=== PATIENT | female | born 1980 | race Two or more races ===

== ENCOUNTER → 2024-08-19 | Outpatient (CLI) | payer MEDICAID, SELFPAY ==
--- NOTE | 2024-08-19 10:00 | XR_ITS ---
Examination: Breast ultrasound complete, bilateral Date and time of exam: August 19, 2024 1012 hours INDICATIONS: Bilateral breast sonography June 18, 2023 right breast 9:00 nodule 5 mm retroareolar nodule 6 mm, family history breast cancer Technique: Real-time grayscale ultrasonographic imaging bilateral breasts, including all 4 quadrants as well as nipple retroareolar and axillary regions. Findings: Sonographic images right breast 9:00 circumscribed nodule 5 x 4 x 5 mm Sonographic images left breast No cystic or solid mass IMPRESSION: BI-RADS Category 2: Benign findings
--- NOTE | 2024-08-19 11:15 | XR_ITS ---
Examination: Screening digital mammography, bilateral Computer aided detection 3-D breast Tomosynthesis, bilateral Date and time of exam: August 19, 2024 1005 hours Compared to mammograms dating to July 17, 2020 Indication: Screening Technique: Nonmagnified MLO, CC views of the breasts to been obtained, reconstructed from 3-D Tomosynthesis images. R2 computer aided detection program utilized for evaluation of suspicious masses and/or abnormal calcifications. 3-D Tomosynthesis images obtained. Findings: The breasts are heterogeneously dense, which may obscure small masses The breast architecture is nodular 10 mm round focal asymmetry outer left breast CC view, 9.6 cm from the nipple 8mm oval asymmetry right breast CC view, nipple level, 8.6 cm from the nipple Impression: BI-RADS Category 0: Incomplete: Need additional imaging evaluation Recommend spot tomographic views upper outer quadrant left breast posterior depth to assess 10 mm focal asymmetry outer left breast CC view Recommend follow-up spot tomographic CC view posterior depth upper right breast spot tomographic MLO view to assess 8mm focal asymmetry right breast CC view Recommend bilateral breast sonography follow-up.
== END | disposition home or self-care (01) ==
PROVIDERS: PCP Family Medicine; Referring Provider Specialist; Visit Provider Specialist
DX: Z12.31 Encounter for screening mammogram for malignant neoplasm of breast (principal); R92.8 Other abnormal and inconclusive findings on diagnostic imaging of breast; N64.89 Other specified disorders of breast; Z80.3 Family history of malignant neoplasm of breast
CPT/HCPCS: 76641; 77063; 77067

== ENCOUNTER → 2024-08-20 | Outpatient (CLI) | payer MEDICAID, SELFPAY ==
--- NOTE | 2024-08-20 12:37 | XR_ITS ---
Examination: Diagnostic digital mammography, bilateral Computer aided detection 3-D breast Tomosynthesis, bilateral Date and time of exam: August 20, 2024 1249 hours INDICATIONS: Mammogram August 19, 2024 8 mm focal asymmetry posterior depth right breast CC view 8.6 cm from the nipple, 10 mm oval asymmetry posterior depth outer left breast CC view Technique: Nonmagnified MLO, CC views of the breasts to been obtained, reconstructed from 3-D Tomosynthesis images. R2 computer aided detection program utilized for evaluation of suspicious masses and/or abnormal calcifications. 3-D Tomosynthesis images obtained. Findings: The breasts are heterogeneously dense, which may obscure small masses 6 mm nodule is depicted posterior depth on the spot compression MLO view upper right breast posterior depth 6 mm focal asymmetry is confirmed on the spot compression view outer left breast posterior depth Impression: BI-RADS Category 3: Probably benign findings Six-month bilateral mammography follow-up is needed to document stability of focal asymmetry described above.
== END | disposition home or self-care (01) ==
PROVIDERS: Referring Provider Specialist; Visit Provider Specialist
DX: R92.8 Other abnormal and inconclusive findings on diagnostic imaging of breast (principal); N64.89 Other specified disorders of breast
CPT/HCPCS: 77062; 77066; G0279

== ENCOUNTER 2024-11-01 08:43 | Outpatient (RCR) | payer MEDICAID, SELFPAY ==
--- NOTE | 2024-11-01 10:07 | PT.OIERPT ---
PT OP Initial Eval Patient Information Outpatient Physical Therapy Treatment Date: 11/01/24 Visit Reasons: LOW BACK PAIN Medical Diagnosis: Back Pain; Right Hip Pain Treatment Dx #1: Back Pain Treatment Dx #2: Right Hip Pain Start of Care: 11/01/24 Date of Onset: 3 years ago Smoking Status Smoking Status: Never smoker Initial Assessment Subjective: Pt is a 44 y/o female reports of chronic back and right LE pain (/) worsening 3 years ago. Pt now notice more numbness and tingling down the right foot. Xray negative but no MRI. Pt has limitation with sitting, standing, chores, self care, cooking, work duties, walking, and performing recreational activities. Objective: L/S AROM: all motions are WFL except pain into extension and right sidebending Hip PROM: all motions are WFL except IR Hip MMTs: grossly 3+/5 Special Test (+) SLR (+) crossed SLR Assessment: Pt demonstrate back pain with mobility deficits consistent with possible disc involvement leading to difficulty with ADLs. Pt will attempt physical therapy if pain persist Pt will be refer back to provider. 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
== END 2024-11-08 23:59 | disposition home or self-care (01) ==
LOC: CPTX 08:43
PROVIDERS: PCP Family Medicine; Referring Provider Family Medicine; Visit Provider Family Medicine
DX: M54.50 Low back pain, unspecified (principal); M25.551 Pain in right hip; R20.0 Anesthesia of skin; R20.2 Paresthesia of skin; R26.2 Difficulty in walking, not elsewhere classified; G89.29 Other chronic pain
CPT/HCPCS: 97162

== ENCOUNTER 2024-12-06 10:30 | Outpatient (RCR) | payer MEDICAID, SELFPAY ==
--- NOTE | 2024-11-09 09:18 | PT.ODAYNRPT ---
PT Outpatient Daily Note OP Daily Note Outpatient Physical Therapy Treatment Date: 11/09/24 Visit Reasons: LOW BACK PAIN Subjective: Pt's back is about the same and aches. Objective: Please see flow chart for list of ther ex performed Assessment: minimal change in pain post PT session. Cues to have her hands behind her back to recruit correct musculatures with posterior pelvis tilt Plan: Continue with PT Length of Time (minutes) of Treatment: 30 Minutes Procedure Charges Therapeutic Exercise 30 minutes: Yes
--- NOTE | 2024-11-11 09:34 | PT.ODAYNRPT ---
PT Outpatient Daily Note OP Daily Note Outpatient Physical Therapy Treatment Date: 11/11/24 Visit Reasons: LOW BACK PAIN Subjective: No new complaints or concerns. Objective: Please see flow sheet for ther ex list. Assessment: Pt demonstrates good abdominal recruitment during posterior pelvic tilt exercise. Plan: Continue with POC. Length of Time (minutes) of Treatment: 30 Minutes Procedure Charges Therapeutic Exercise 30 minutes: Yes
--- NOTE | 2024-11-16 12:58 | PT.ODAYNRPT ---
PT Outpatient Daily Note OP Daily Note Outpatient Physical Therapy Treatment Date: 11/16/24 Visit Reasons: LOW BACK PAIN Subjective: Pt's back feels about the same. Pt continues to notice right LE pain down the leg. Objective: Please see flow chart for list of ther ex performed Assessment: less pain reported post Pt session. Added standing extension to exercise program with good tolerance. Minimal changes with right LE pain post standing exercise Plan: Continue with PT Length of Time (minutes) of Treatment: 30 Minutes Procedure Charges Therapeutic Exercise 30 minutes: Yes
--- NOTE | 2024-11-18 09:55 | PT.ODAYNRPT ---
PT Outpatient Daily Note OP Daily Note Outpatient Physical Therapy Treatment Date: 11/18/24 Visit Reasons: LOW BACK PAIN Subjective: Pt's back is okay. Pt still has pain down her right hip intermittently. Objective: Please see flow chart for list of ther ex performed Assessment: progressing patient to more core exercises with TB. Added standing extension with minimal results of decrease radicular hip pain Plan: Continue with PT Length of Time (minutes) of Treatment: 30 Minutes Procedure Charges Therapeutic Exercise 30 minutes: Yes
--- NOTE | 2024-11-23 09:53 | PT.ODAYNRPT ---
PT Outpatient Daily Note OP Daily Note Outpatient Physical Therapy Treatment Date: 11/23/24 Visit Reasons: LOW BACK PAIN Subjective: Pt's back is better. Pt wants to continue physical therapy and complete all 12 sessions authorized. Pt felt after last session it really helped her back Objective: Please see flow chart for list of ther ex performed Assessment: progressing patient to more core strengthening exercises with good tolerance Plan: Continue with PT Length of Time (minutes) of Treatment: 30 Minutes Procedure Charges Therapeutic Exercise 30 minutes: Yes
--- NOTE | 2024-11-30 10:50 | PT.ODAYNRPT ---
PT Outpatient Daily Note OP Daily Note Outpatient Physical Therapy Treatment Date: 11/30/24 Visit Reasons: LOW BACK PAIN Subjective: Pt's back is slightly better today. Pt notice less leg pain lately. Objective: Please see flow chart for list of ther ex performed Assessment: cues to correct wall brianna to to keep back flat on the wall as well as elbow to achieve the right form. Plan: Continue with PT Length of Time (minutes) of Treatment: 30 Minutes Procedure Charges Therapeutic Exercise 30 minutes: Yes
--- NOTE | 2024-12-02 11:55 | PT.ODAYNRPT ---
PT Outpatient Daily Note OP Daily Note Outpatient Physical Therapy Treatment Date: 12/02/24 Visit Reasons: LOW BACK PAIN Subjective: Pt's back feels better. No no concerns to report. Objective: Please see flow chart for list of ther ex performed Assessment: tolerate exercises with minimal pain; cues to decrease trunk sway with tick tock exercise Plan: Continue with PT Length of Time (minutes) of Treatment: 30 Minutes Procedure Charges Therapeutic Exercise 30 minutes: Yes
--- NOTE | 2024-12-06 11:27 | PT.ODAYNRPT ---
PT Outpatient Daily Note OP Daily Note Outpatient Physical Therapy Treatment Date: 12/06/24 Visit Reasons: LOW BACK PAIN Subjective: Pt's back is sore but a little better. Objective: Please see flow chart for list of ther ex performed Assessment: tolerate exercises with minimal pain Plan: Continue with PT Length of Time (minutes) of Treatment: 30 Minutes Procedure Charges Therapeutic Exercise 30 minutes: Yes
== END 2024-12-08 23:59 | disposition home or self-care (01) ==
LOC: CPTX 10:30
PROVIDERS: PCP Family Medicine; Referring Provider Family Medicine; Visit Provider Family Medicine
DX: M54.50 Low back pain, unspecified (principal); M25.551 Pain in right hip; R20.0 Anesthesia of skin; R20.2 Paresthesia of skin; R26.2 Difficulty in walking, not elsewhere classified
CPT/HCPCS: 97110

== ENCOUNTER 2024-12-16 09:30 | Outpatient (RCR) | payer MEDICAID, SELFPAY ==
--- NOTE | 2024-12-09 10:26 | PT.ODAYNRPT ---
PT Outpatient Daily Note OP Daily Note Outpatient Physical Therapy Treatment Date: 12/09/24 Visit Reasons: low back pain Subjective: Pt's back is better and is taking less medication. Objective: Please see flow chart for list of ther ex performed Assessment: tolerate exercises with minimal pain Plan: Continue with PT Length of Time (minutes) of Treatment: 30 Minutes Procedure Charges Therapeutic Exercise 30 minutes: Yes
--- NOTE | 2024-12-13 11:44 | PT.ODAYNRPT ---
PT Outpatient Daily Note OP Daily Note Outpatient Physical Therapy Treatment Date: 12/13/24 Visit Reasons: low back pain Subjective: Pt's back is better. Pt does not have any concern and is ready to be release from care after next session Objective: Please see flow chart for list of ther ex performed Assessment: tolerate exercises with minimal pain Plan: Continue with PT Length of Time (minutes) of Treatment: 30 Minutes Procedure Charges Therapeutic Exercise 30 minutes: Yes
--- NOTE | 2024-12-16 09:37 | PT.ODS1RPT ---
PT OP Progress/Discharge Note Date of Service: 12/16/24 Progress Note/DC Note Progress Note/Discharge Note: DC Note Patient Information Visit Reasons: low back pain Medical Diagnosis: Back Pain; Right Hip Pain Treatment Dx #1: Back Pain Treatment Dx #2: Right Hip Pain Service Discharge Date: 12/16/24 Status Subjective: Pt's back is 50% better. Pt still notice pain down her leg intermittently. Pt has been able to resume ADLs with less limitation but will like to get a MRI to see the cause of leg pain. Pt has a follow up appt with next week. Pt feels comfortable being release from care with exercises to continue at home. Objective: L/S AROM: all motions are WNL Hip PROM: all motions are WNL Hip MMTs: grossly 4-5 Assessment: Pt demonstrate functional L/S mobility and core strength allowing her to resume ADLs with less limitation. At this time Pt will no longer benefit from physical therapy due to plateau towards goals. Recommend L/S MRI to help rule in/out nature of leg pain. Pt was instructed on HEP last session and educated to continue exercises to maintain overall mobility. Pt performed all exercises safely, thank you for your referrals. Plan: D/C home with HEP and follow up with MD CARVALHO Procedure Charges Therapeutic Exercise 30 minutes: Yes
== END 2025-01-08 23:59 | disposition home or self-care (01) ==
LOC: CPTX 09:30
PROVIDERS: PCP Internal Medicine Nephrology; Referring Provider Internal Medicine Nephrology; Visit Provider Internal Medicine Nephrology
DX: M54.50 Low back pain, unspecified (principal); M25.551 Pain in right hip; G89.29 Other chronic pain; M79.604 Pain in right leg; R26.2 Difficulty in walking, not elsewhere classified; R20.0 Anesthesia of skin; R20.2 Paresthesia of skin
CPT/HCPCS: 97110

== ENCOUNTER 2025-01-31 09:52 | Outpatient (RCR) | payer MEDICAID, SELFPAY ==
--- NOTE | 2025-01-31 10:09 | PT.OIERPT ---
PT OP Initial Eval Patient Information Outpatient Physical Therapy Treatment Date: 01/31/25 Visit Reasons: sprain of sacroiliac joint Medical Diagnosis: S33.6XXD Treatment Dx #1: LBP with radiculopathy Treatment Dx #2: R GT bursitis Start of Care: 01/31/25 Date of Onset: 3 yrs ago Smoking Status Smoking Status: Never smoker Initial Assessment Subjective: Pt is 44 yr old female who c/o R hip and LE pain and points to the R SI joint/L5 area as site of pain. She recently completed 12 sessions of therapy here and feels 50% better and she wants to continue with therapy. Sometimes the pain runs down the LE to the foot. Increased pain with bending, lifting and twisting. She sits for 5 hours at a time at work which aggravates the ssx. PMH: none reported Imaging: with provider Pt goal: to get rid of the pain. Objective: Trunk ArOM: ? B SB 50% of normal with pain to R ? Extension: 20% with pain around L4-5, L5-S1 on R ? Flexion: 6 from floor ? B rotation: 60% with pain to the L ? R SLR ROM: 35 deg. ? TTP: moderate paraspinals L3-S1 on R and R SI joint, R greater trochanter region SI shear: positive on R Gaenslen's: positive on R Sidelying compression: negative ? Neuro: R SLR: positive Assessment: Pt presents with positive R SI special testing along with R sided LBP that is sensitive to sidebending and rotation consistent with lumbar disk issues with R LE radiculopathy. Pt requires skilled therapy to meet goals and has fair rehab potential. PT recommends further diagnostic imaging of the L/S. Eval followed by HEP printout. Short Term and Prison Goals 1. Ind with HEP 2. Decreased TTP of R L/S, SI joint and R GT region from mod to min 3. Improved lumbar rotation to 75% of full in order to turn in bed with <=3/10 LBP Treatment Plan 1. Manual therapy ? 2. Therex ? 3. Modalities as indicated, moist heat, ice, estim, mechanical traction Frequency and Duration: 2x a week for 6 weeks Certification Dates: 01/31/25 to 05/03/25 Procedure Charges OP PT Eval Mod Complex 30 minutes: Yes
== END 2025-02-07 23:59 | disposition home or self-care (01) ==
LOC: CPTX 09:52
PROVIDERS: PCP Family Medicine; Referring Provider Family Medicine; Visit Provider Family Medicine
DX: M54.16 Radiculopathy, lumbar region (principal); S33.6XXD Sprain of sacroiliac joint, subsequent encounter; X58.XXXD Exposure to other specified factors, subsequent encounter
CPT/HCPCS: 97162

== ENCOUNTER 2025-03-10 10:00 | Outpatient (RCR) | payer MEDICAID, SELFPAY ==
--- NOTE | 2025-02-08 13:06 | PT.ODAYNRPT ---
PT Outpatient Daily Note OP Daily Note Outpatient Physical Therapy Treatment Date: 02/08/25 Visit Reasons: SPRAIN SACRILIAC JOINT Subjective: Increased pain on R side, points to SI joint Objective: See F/S for therex Assessment: Pt has high tissue irritability of R SI joint. PT recommends SI belt. Plan: Continue per POC Length of Time (minutes) of Treatment: 30 Minutes Procedure Charges Therapeutic Exercise 30 minutes: Yes
--- NOTE | 2025-02-25 11:03 | PT.ODAYNRPT ---
PT Outpatient Daily Note OP Daily Note Outpatient Physical Therapy Treatment Date: 02/25/25 Visit Reasons: SPRAIN SACRILIAC JOINT Subjective: Pt's back and hip is 50% better since last bout of PT session. Pt recently seen her PCP and recommended more PT vs MRI. Pt plans to request for a MRI at the end of the month due to continue pain down the leg. Objective: Please see flow chart for list of ther ex performed Assessment: tolerate exercises with minimal pain. frequent cues to decrease trunk sway with monster and side step exercises Plan: Continue with PT Length of Time (minutes) of Treatment: 30 Minutes Procedure Charges Therapeutic Exercise 30 minutes: Yes
--- NOTE | 2025-03-01 11:38 | PT.ODAYNRPT ---
PT Outpatient Daily Note OP Daily Note Outpatient Physical Therapy Treatment Date: 03/01/25 Visit Reasons: SPRAIN SACRILIAC JOINT Subjective: Pt continues to have right hip and lower back pain. Pt mentioned SI belt increases pain and pressure due to that reason patient stopped wearing the belt. Objective: Please see flow chart for list of ther ex performed Assessment: difficulty with sidelying hip abduction due to pain and modified to clams without TB. Minimal change in right SIJ and back pain post PT session Plan: Continue with PT Length of Time (minutes) of Treatment: 30 Minutes Procedure Charges Therapeutic Exercise 30 minutes: Yes
--- NOTE | 2025-03-03 11:24 | PT.ODAYNRPT ---
PT Outpatient Daily Note OP Daily Note Outpatient Physical Therapy Treatment Date: 03/03/25 Visit Reasons: SPRAIN SACRILIAC JOINT Subjective: Pt's right hip and back pain is a little better. Pt has a follow up appt with provider on friday and will request MRI. Objective: Please see flow chart for list of ther ex performed Assessment: added 2 more stretching rep with IT and glute stretches with good tolerance. Cues to decrease L/S rotation with clamshell exercise Plan: Continue with PT Length of Time (minutes) of Treatment: 30 Minutes Procedure Charges Therapeutic Exercise 30 minutes: Yes
--- NOTE | 2025-03-08 11:55 | PT.ODAYNRPT ---
PT Outpatient Daily Note OP Daily Note Outpatient Physical Therapy Treatment Date: 03/08/25 Visit Reasons: SPRAIN SACRILIAC JOINT Subjective: Pt's right hip and back is a little better. Pt seen provider over the weekend and recommends MRI as well as chiropractic treatment. Provider also wants her to continue physical therapy since it's helping a little. Pt wants recommends for mattress topper. Objective: Please see flow chart for list of ther ex performed Assessment: minimal change in right back and hip pain post PT session. Pt was given 2 mattress topper where she can buy to possibly assist with her pain. Cues to correct SLS against wall to engage more glute med in position. Plan: Continue with PT Length of Time (minutes) of Treatment: 30 Minutes Procedure Charges Therapeutic Exercise 30 minutes: Yes
--- NOTE | 2025-03-10 11:33 | PT.ODAYNRPT ---
PT Outpatient Daily Note OP Daily Note Outpatient Physical Therapy Treatment Date: 03/10/25 Visit Reasons: SPRAIN SACRILIAC JOINT Subjective: Pt's right side of the back and hip has pain and feels stiff today. Pt will be seeing chiropractor 04/12/25. Objective: Please see flow chart for list of ther ex perfomed Assessment: difficulty with rocker board balance exercise due to difficulty with stabilizing or engaging glutes while performing exercises Plan: Continue with PT Length of Time (minutes) of Treatment: 30 Minutes Procedure Charges Therapeutic Exercise 30 minutes: Yes
== END 2025-03-10 23:59 | disposition home or self-care (01) ==
LOC: CPTX 10:00
PROVIDERS: PCP Family Medicine; Referring Provider Family Medicine; Visit Provider Family Medicine
DX: M54.16 Radiculopathy, lumbar region (principal); S33.6XXD Sprain of sacroiliac joint, subsequent encounter; X58.XXXD Exposure to other specified factors, subsequent encounter; M70.61 Trochanteric bursitis, right hip
CPT/HCPCS: 97110

== ENCOUNTER → 2025-03-30 | Outpatient (CLI) | payer MEDICAID, SELFPAY ==
--- NOTE | 2025-03-30 10:15 | XR_ITS ---
Examination: Diagnostic digital mammography, bilateral Computer aided detection 3-D breast Tomosynthesis, bilateral Date and time of exam: March 30, 2025 0956 hours INDICATIONS: Mammogram August 20, 2024 6 mm nodule posterior depth upper right breast MLO view, 6 mm focal asymmetry outer left breast Technique: Nonmagnified MLO, CC views of the breasts to been obtained, reconstructed from 3-D Tomosynthesis images. R2 computer aided detection program utilized for evaluation of suspicious masses and/or abnormal calcifications. 3-D Tomosynthesis images obtained. Findings: The breasts are heterogeneously dense, which may obscure small masses Stable focal asymmetries inner right and left breast on the CC views Although no definite suspicious masses the breast architecture is heterogeneous and nodular Impression: BI-RADS Category 0: Incomplete: Need additional imaging evaluation Recommend repeat bilateral breast sonography follow-up.
== END | disposition home or self-care (01) ==
LOC: CDIM 09:47
PROVIDERS: PCP Family Medicine; Referring Provider Specialist; Visit Provider Specialist
DX: R92.8 Other abnormal and inconclusive findings on diagnostic imaging of breast (principal)
CPT/HCPCS: 77062; 77066; G0279

== ENCOUNTER 2025-03-31 13:00 | Outpatient (RCR) | payer MEDICAID, SELFPAY ==
--- NOTE | 2025-03-15 13:04 | PT.ODAYNRPT ---
PT Outpatient Daily Note OP Daily Note Outpatient Physical Therapy Treatment Date: 03/15/25 Visit Reasons: sprain of joint Subjective: Pt's back and hip hurts and stiff today. Minimal pain and overall symptoms has not changed since last session. Objective: Please see flow chart for list of ther ex performed Assessment: minimal changes with right hip pain post PT session. patient able to complete instructed exercise reps. Plan: Continue with PT Length of Time (minutes) of Treatment: 30 Minutes Procedure Charges Therapeutic Exercise 30 minutes: Yes
--- NOTE | 2025-03-22 11:21 | PT.ODAYNRPT ---
PT Outpatient Daily Note OP Daily Note Outpatient Physical Therapy Treatment Date: 03/22/25 Visit Reasons: sprain of joint Subjective: Pt now notice right flank pain and is concern of another issue. Pt's right hip feels so-so. Due to pain Pt has limitation with prolonged walking. Objective: Please see flow chart for list of ther ex performed Assessment: unable to progress patient's exercise due to reported similar symptoms from previous sessions. Pt educated that right flank plan may originate from lumbar spine; MRI is needed to help rule in/out back. Pt gave verbal understanding and is pending MRI. Difficulty with lateral step up exercise due to decrease pelvis stability when she steps up Plan: Continue with PT Length of Time (minutes) of Treatment: 30 Minutes Procedure Charges Therapeutic Exercise 30 minutes: Yes
--- NOTE | 2025-03-25 15:27 | PT.ODAYNRPT ---
PT Outpatient Daily Note OP Daily Note Outpatient Physical Therapy Treatment Date: 03/25/25 Visit Reasons: sprain of joint Subjective: Pt's back and hip feels a little better. No new concerns. Objective: Please see flow chart for list of ther ex performed Assessment: tolerate exercises with minimal pain Plan: Continue with PT Length of Time (minutes) of Treatment: 30 Minutes Procedure Charges Therapeutic Exercise 30 minutes: Yes
--- NOTE | 2025-03-29 13:41 | PT.ODAYNRPT ---
PT Outpatient Daily Note OP Daily Note Outpatient Physical Therapy Treatment Date: 03/29/25 Visit Reasons: sprain of joint Subjective: Pt's back and hip feels so-so. Pt still notice pain intermittently. Objective: Please see flow chart for list of ther ex performed Assessment: focus on hip strengthening exercises today using YTB; patient reports of hip fatigue post PT session Plan: Continue with PT Length of Time (minutes) of Treatment: 30 Minutes Procedure Charges Therapeutic Exercise 30 minutes: Yes
--- NOTE | 2025-03-31 13:27 | PT.ODS1RPT ---
PT OP Progress/Discharge Note Date of Service: 03/31/25 Progress Note/DC Note Progress Note/Discharge Note: DC Note Patient Information Visit Reasons: sprain of joint Medical Diagnosis: s33.6xxd Treatment Dx #1: Back Pain Treatment Dx #2: Right Hip Pain Service Discharge Date: 03/31/25 Status Subjective: Pt's back and right hip continues to hurt. Most of patient's pain is near the right flank and occasional referral down the right leg. Due to pain Pt has limitation with sitting, standing, walking, chores, self care, cooking, cleaning, and performing recreational activities. Objective: L/S AROM: all motions are WFL with end range pain into flexion and extension Hip PROM: all motions are WFL Hip MMTs: grossly 3+/5 Special Test (+) SLR (+) slump Assessment: Pt continues to have back and right LE pain leading to difficulty with ADLs. Pt has plateau towards physical therapy goals and will no longer benefit from physical therapy. Recommend L/S MRI to help rule in/out nature of pain. Pt was instructed on HEP last session and educated to continue exercises to maintain overall mobility. Pt performed all exercises safely, thank you for your referrals. Plan: D/C home with HEP and follow up with MD CARVALHO Recommend L/S MRI Procedure Charges Therapeutic Exercise 30 minutes: Yes
== END 2025-04-10 23:59 | disposition home or self-care (01) ==
LOC: CPTX 13:00
PROVIDERS: PCP Family Medicine; Referring Provider Family Medicine; Visit Provider Family Medicine
DX: M54.16 Radiculopathy, lumbar region (principal); M71.551 Other bursitis, not elsewhere classified, right hip; S33.6XXD Sprain of sacroiliac joint, subsequent encounter; X58.XXXD Exposure to other specified factors, subsequent encounter
CPT/HCPCS: 97110

== ENCOUNTER → 2025-04-04 | Outpatient (CLI) | payer MEDICAID, SELFPAY ==
--- NOTE | 2025-04-04 12:30 | XR_ITS ---
Examination: Breast ultrasound complete, bilateral Date and time of exam: April 04, 2025: 59 hours INDICATIONS: Heterogeneously dense nodular breast architecture on mammogram March 30, 2025 Technique: Real-time grayscale ultrasonographic imaging bilateral breasts, including all 4 quadrants as well as nipple retroareolar and axillary regions. Findings: Sonographic images right breast 9:00 circumscribed nodule 4 x 5 mm Sonographic images left breast No cystic or solid mass IMPRESSION: Pars category 2: Benign findings
== END | disposition home or self-care (01) ==
PROVIDERS: PCP Family Medicine; Referring Provider Specialist; Visit Provider Specialist
DX: R92.8 Other abnormal and inconclusive findings on diagnostic imaging of breast (principal)
CPT/HCPCS: 76641